=== PATIENT | female | born 1990 | race African-American/Black ===

== ENCOUNTER 2022-08-15 18:31 | Emergency (ER) | payer MEDICAID, SELFPAY ==
[2022-08-15] MEDS ORDERED: Dexameth. Sod Phosp. 10 MG/ML (CHEMO USE ONLY) ONE (21:26)
[2022-08-15] MEDS ORDERED: Ipratropium/Albuterol 3 ML NEB ONE (21:52)
== END 2022-08-15 22:26 | disposition home or self-care (01) ==
LOC: ERS 18:31
DX: J20.9 Acute bronchitis, unspecified (principal)
CPT/HCPCS: 71046; 96372; J1100; J7620